=== PATIENT | female | born 1945 | race Caucasian/White ===

== ENCOUNTER 2017-09-10 05:19 | Day surgery (SDC) | payer OTHER ==
[~2017-09-10 05:19] MED LIST: CRESTOR20 MG PO; FENOFIBRATE145 MG PO; GLIMEPIRIDE2 MG PO; METFORMIN HCL500 MG PO; METOPROLOL SUCC25 MG PO; OMEGA 3 1,0001 EACH PO; VALSARTAN-HCTZ1 EAC3 PO; VOLTAREN100 GM TD
== END 2017-09-10 12:01 | disposition home or self-care (01) ==
LOC: CIR.AMB 05:19
DX: M75.122 Complete rotator cuff tear or rupture of left shoulder, not specified as traumatic (principal); M75.22 Bicipital tendinitis, left shoulder